=== PATIENT | female | born 2000 | race Two or more races ===

== ENCOUNTER 2025-03-18 21:42 | Emergency (ER) | payer BC, OTHER ==
[~2025-03-18] VITALS: Ht 170.2 cm; Wt 71.2 kg
[2025-03-18 21:57] VITALS: BP 119/71; TEMP 99.4; O2SAT 98
[2025-03-18] MEDS: LEVETIRACETAM (500MG) 1,000 MG in IV NS 0.9% 90 ML IV STA (22:21)
[2025-03-18] MEDS: IV NS 0.9% 1,000 ML IV ONE (22:21)
[2025-03-19 01:25] LABS: APPEARANCE,URINE CLEAR (CLEAR); BILIRUBIN,URINE NEGATIVE (NEGATIVE); BLOOD, URINE NEGATIVE Ery/uL (NEGATIVE); COLOR,URINE STRAW (YELLOW); KETONES,URINE NEGATIVE (NEGATIVE); LEUKOCYTE ESTERASE ,URINE NEGATIVE (NEGATIVE); NITRITE, URINE NEGATIVE (NEGATIVE); PH,URINE 5.5 (5.0-8.0); PROTEIN,URINE NEGATIVE (NEGATIVE); UGLUCOSE NEGATIVE (NEGATIVE); UROBILINOGEN,URINE 0.2 EU/dL (0.2)
[2025-03-19 01:36] LABS: PREGNANCY TEST URINE QUAL NEGATIVE (NEGATIVE)
[2025-03-19 01:39] LABS: AMPHETAMINE, URINE NEGATIVE (NEGATIVE); BARBITURATE, URINE NEGATIVE (NEGATIVE); BENZODIAZEPINE, URINE NEGATIVE (NEGATIVE); CANNABINOID, URINE POSITIVE (NEGATIVE); COCCAINE, URINE NEGATIVE (NEGATIVE); OPIATE, URINE NEGATIVE (NEGATIVE); PHENCYCLIDINE SCREEN,URINE NEGATIVE (NEGATIVE)
== END 2025-03-18 22:30 | disposition left against medical advice (07) ==
LOC: ER 21:44
DX: G40.909 Epilepsy, unspecified, not intractable, without status epilepticus (principal); R00.0 Tachycardia, unspecified; Z53.29 Procedure and treatment not carried out because of patient's decision for other reasons
CPT/HCPCS: 84703-TC; J1953; J7030

== ENCOUNTER → 2025-03-22 | Emergency (ER) | payer BC ==
[~2025-03-22] VITALS: Ht 172.7 cm; Wt 59.0 kg
[~2025-03-22] MED LIST: LORAZEPAM INJ 2 MG/ML VIAL ONE
[2025-03-22 03:55] VITALS: BP 115/65; TEMP 98
[2025-03-22] MEDS: LORAZEPAM INJ 2 MG/ML VIAL IM ONE (04:08)
[2025-03-22 04:14] VITALS: O2SAT 98
== END | disposition home or self-care (01) ==
LOC: ER 04:03
DX: F41.9 Anxiety disorder, unspecified (principal)
CPT/HCPCS: 99283; 96372; J2060

== ENCOUNTER 2025-04-18 22:04 | Emergency (ER) | payer BC ==
[2025-04-18] MEDS ORDERED: IBUPROFEN 600 MG TABLET ONE (22:34)
[2025-04-18] MEDS: IBUPROFEN 600 MG TABLET PO ONE (22:36)
[2025-04-19 00:33] LABS: PREGNANCY TEST URINE QUAL NEGATIVE (NEGATIVE)
[2025-04-19] MEDS ORDERED: ACETAMINOPHEN ES 500 MG TABLET ONE (02:49)
[2025-04-19] MEDS ORDERED: KETOROLAC TROMETHAMINE 15 MG/ML VIAL ONE (02:49)
[2025-04-19] MEDS ORDERED: IBUP-1490 PO (02:52)
[2025-04-19] MEDS ORDERED: ACET-2605 PO (02:52)
[2025-04-19] MEDS: KETOROLAC TROMETHAMINE 15 MG/ML VIAL IM ONE (02:53)
[2025-04-19] MEDS: ACETAMINOPHEN ES 500 MG TABLET PO ONE (02:53)
[2025-04-19 03:00] VITALS: BP 116/75; O2SAT 98
== END 2025-04-19 03:01 | disposition home or self-care (01) ==
LOC: ER 22:07
DX: S00.83XA Contusion of other part of head, initial encounter (principal); S02.2XXA Fracture of nasal bones, initial encounter for closed fracture; W10.9XXA Fall (on) (from) unspecified stairs and steps, initial encounter; Y93.89 Activity, other specified; Y92.89 Other specified places as the place of occurrence of the external cause; Y99.8 Other external cause status
CPT/HCPCS: 99285; 70450; 70160; 84703; 96372; J1885

== ENCOUNTER 2025-09-28 15:11 | Emergency (ER) | payer BC ==
[~2025-09-28] VITALS: Ht 170.2 cm; Wt 69.9 kg
[~2025-09-28 15:11] MED LIST changes: +ACET-2605 PO; +IBUP-1490 PO; -LORAZEPAM INJ 2 MG/ML VIAL ONE
[2025-09-28 16:17] LABS: APPEARANCE,URINE CLEAR (CLEAR); BLOOD, URINE NEGATIVE Ery/uL (NEGATIVE); LEUKOCYTE ESTERASE ,URINE NEGATIVE (NEGATIVE); NITRITE, URINE NEGATIVE (NEGATIVE); UGLUCOSE NEGATIVE (NEGATIVE)
[2025-09-28 16:20] LABS: PREGNANCY TEST URINE QUAL NEGATIVE (NEGATIVE)
[2025-09-28] MEDS ORDERED: ONDANSETRON HCL/PF 4 MG/2 ML VIAL ONE (16:24)
[2025-09-28 16:25] LABS: PLATELET COUNT (AUTO) 445 K/uL (150-450); RED BLOOD CELL COUNT(AUTO) 4.68 MIL/uL (4.0-5.2); RED CELL DISTRIBUTION WIDTH 16.6 % (11.5-15.0); WHITE BLOOD COUNT (AUTO) 8.0 K/uL (4.3-11.0)
[2025-09-28 16:29] LABS: AMPHETAMINE, URINE NEGATIVE (NEGATIVE); BARBITURATE, URINE NEGATIVE (NEGATIVE); CANNABINOID, URINE NEGATIVE (NEGATIVE); COCCAINE, URINE NEGATIVE (NEGATIVE); OPIATE, URINE NEGATIVE (NEGATIVE)
[2025-09-28 16:30] LABS: BENZODIAZEPINE, URINE POSITIVE (NEGATIVE)
[2025-09-28] MEDS: ONDANSETRON HCL/PF 4 MG/2 ML VIAL IVP ONE (16:30)
[2025-09-28] MEDS: IV NS 0.9% 1,000 ML BAG IV ONE (16:30)
[2025-09-28 16:38] LABS: CALCIUM, SERUM 8.8 mg/dL (8.5-10.1); CREATININE 0.9 mg/dL (0.6-1.3); SODIUM SERUM 137 mmol/L (136-145); UREA NITROGEN, BLOOD 11 mg/dL (7-18)
[2025-09-28 16:44] LABS: ALCOHOL, BLOOD 29 mg/dL (0-10); ASPARTATE AMINOTRANSFERASE 15 U/L (15-37); TOTAL PROTEIN, SERUM 7.2 g/dL (6.4-8.2)
[2025-09-28] MEDS ORDERED: LORAZEPAM 1 MG TABLET ONE (17:37)
[2025-09-28] MEDS: LORAZEPAM 1 MG TABLET PO ONE ×2 (17:39→18:52)
[2025-09-28 19:21] VITALS: BP 126/73; TEMP 98.4; O2SAT 99
== END 2025-09-28 19:22 | disposition home or self-care (01) ==
LOC: ER 16:29
DX: S99.912A Unspecified injury of left ankle, initial encounter (principal); F10.129 Alcohol abuse with intoxication, unspecified; Z91.0120 Allergy to eggs, unspecified; Z91.410 Personal history of adult physical and sexual abuse; Z79.899 Other long term (current) drug therapy; X50.1XXA Overexertion from prolonged static or awkward postures, initial encounter; Y93.89 Activity, other specified; Y92.89 Other specified places as the place of occurrence of the external cause; Y99.8 Other external cause status; Y90.9 Presence of alcohol in blood, level not specified
CPT/HCPCS: 99284; 96374; 96361; 93005; 85025; 80048; 80076; 84703; 81003; 36415; 84484; 80320; 80307; J2405; J7030; G0480